=== PATIENT | male | born 1940 | race Caucasian/White ===

== ENCOUNTER 2016-05-05 08:23 | Day surgery (SDC) | payer MEDICARE, OTHER ==
[~2016-05-05 08:23] MED LIST: ASAB PO; ATEN25 PO; ATEN50 PO; BETAP120 PO; BETAPACE80 PO; BRILINTA90 MG PO; CALGLUCTAB PO; COSAMIN DS1 TAB PO; CRESTOR5 MG PO; ELIQUIS 5 MG TAB5 MG PO; FOLBIC PO; FOSAMAX + D1 TAB PO; LEVAQUIN750 MG PO; LOVAZA1 GM PO; NEXIUM40 PO; NORCO1 TA2 PO; RYTHMOL300 MG PO; TAMBO50 PO; VITD PO; ZOL50 PO
[2016-05-22] MEDS ORDERED: CALCIUM PO (09:03)
[2016-05-29] MEDS ORDERED: DSS PO (11:26)
== END 2016-05-05 14:10 | disposition home or self-care (01) ==
LOC: SDC 08:23
PROVIDERS: Orthopaedic Surgery
PROC: 3E0R3BZ Introduction of Anesthetic Agent into Spinal Canal, Percutaneous Approach (ICD-10-PCS; 2016-05-05)
PROC: 3E0R33Z Introduction of Anti-inflammatory into Spinal Canal, Percutaneous Approach (ICD-10-PCS; principal; 2016-05-05 08:30)
DX: M54.16 Radiculopathy, lumbar region (principal); M54.5 Low back pain; Z91.013 Allergy to seafood; Z88.5 Allergy status to narcotic agent; E78.00 Pure hypercholesterolemia, unspecified; Z96.1 Presence of intraocular lens; I10 Essential (primary) hypertension; I25.10 Atherosclerotic heart disease of native coronary artery without angina pectoris; I49.9 Cardiac arrhythmia, unspecified; I48.91 Unspecified atrial fibrillation; R91.1 Solitary pulmonary nodule; Z98.890 Other specified postprocedural states; Z90.49 Acquired absence of other specified parts of digestive tract; N40.0 Benign prostatic hyperplasia without lower urinary tract symptoms; Z98.41 Cataract extraction status, right eye; Z98.42 Cataract extraction status, left eye; Z79.899 Other long term (current) drug therapy
CPT/HCPCS: J1040; J2250; J3010; Q9967

== ENCOUNTER 2016-05-19 06:40 | Day surgery (SDC) | payer MEDICARE, OTHER ==
[2016-05-19 10:02] LABS: A/G RATIO 0.9 (0.7-1.9); ALBUMIN 3.1 G/DL (3.5-5.0); ALKALINE PHOSPHATASE 101 U/L (45-117); BUN (BLOOD UREA NITROGEN) 20 MG/DL (6-23); CALCIUM, SERUM 8.4 MG/DL (8.5-10.4); CHLORIDE, SERUM 107 MMOL/L (96-112); CO2 (CARBON DIOXIDE) 29 MMOL/L (24-34); CREATININE 1.24 MG/DL (0.70-1.30); GFR AFRICAN AMERICAN 65 ML/MIN (>=60); GFR NON AFRICAN AMERICAN 56 ML/MIN (>=60); GLOBULIN 3.5 G/DL (2.5-4.1); GLUCOSE, SERUM 110 MG/DL (60-99); POTASSIUM, SERUM 4.4 MMOL/L (3.5-5.3); SGOT(AST) 10 U/L (5-40); SGPT(ALT) 14 U/L (5-65); SODIUM, SERUM 141 MMOL/L (135-148); TOTAL BILIRUBIN 0.3 MG/DL (0-1.2); TOTAL PROTEIN 6.6 G/DL (6.0-8.5)
[2016-05-22] MEDS ORDERED: CALCIUM PO (09:03)
[2016-05-29] MEDS ORDERED: DSS PO (11:26)
== END 2016-05-19 23:59 | disposition home or self-care (01) ==
LOC: SC 06:40
PROVIDERS: Orthopaedic Surgery
PROC: 3E0S3BZ Introduction of Anesthetic Agent into Epidural Space, Percutaneous Approach (ICD-10-PCS; 2016-05-19)
PROC: 3E0S33Z Introduction of Anti-inflammatory into Epidural Space, Percutaneous Approach (ICD-10-PCS; principal; 2016-05-19 07:15)
DX: M54.16 Radiculopathy, lumbar region (principal); E78.00 Pure hypercholesterolemia, unspecified; N40.0 Benign prostatic hyperplasia without lower urinary tract symptoms; I25.10 Atherosclerotic heart disease of native coronary artery without angina pectoris; K21.9 Gastro-esophageal reflux disease without esophagitis; Z90.49 Acquired absence of other specified parts of digestive tract; Z88.5 Allergy status to narcotic agent; Z79.899 Other long term (current) drug therapy; Z98.41 Cataract extraction status, right eye; Z98.42 Cataract extraction status, left eye; Z98.890 Other specified postprocedural states
CPT/HCPCS: 80053; J1040; J2250; J3010